=== PATIENT | female | born 1930 | race Caucasian/White ===

== ENCOUNTER 2019-01-29 05:27 | Observation (INO) ==
[2019-01-29] MEDS ORDERED: NS 500 ML IV ONE (05:34)
[2019-01-29] MEDS ORDERED: ZOFRAN IV ONE (05:34)
--- NOTE | 2019-01-29 05:40 | PROVIDER DOCUMENTATION ---
HPI-General Adult - General Chief Complaint: Nausea/Vomiting Stated Complaint: n/v Time Seen by Provider: 01/29/19 05:29 Source: EMS Allergies/Adverse Reactions: Patient Allergies Allergy/AdvReac Type Severity Reaction Status Date / Time No Known Allergies Allergy Verified 07/24/14 02:27 Home Medications: Home Medication List Medication Instructions Recorded Confirmed Last Taken Type Meloxicam [Mobic] 1 tab PO DAILY 01/29/19 01/29/19 Unknown History Nitrofurantoin Macrocrystal 100 mg PO Q7D 01/29/19 01/29/19 Unknown History [Macrodantin] - History of Present Illness -Gen Adult Nature of Presenting Problems: Pt presents with n/v, pt coming from [place], history from EMS as pt is non verbal but per SNF this is the patient baseline, tonight she developed n/v, pt otherwise at baseline, pt is lying in bed in no acute distress. Location of Pain/Injury: reports: none Pain Radiation: reports: no radiation Quality of Pain: reports: none Severity: reports: mild Onset/Duration: reports: just prior to arrival Timing: reports: still present Context/Activities at Onset: reports: none Modifying Factors: improves with: nothing Associated Symptoms: reports: nausea, vomiting Similar Symptoms Previously?: No Recently seen or treated by another doctor?: No Review of Systems - Adult - REVIEW OF SYSTEMS - ADULT ROS:: unobtainable per condition Constitutional: reports: see HPI Past History - Adult - PAST MEDICAL HISTORY-ADULT Review of Records: reports: Old Records Reviewed, Nursing Assessment Review, Medications Reviewed, Social history reviewed & non-contributory. Major Childhood Illnesses: reports: denies history Cardiovascular: reports: HTN, hyperlipidemia Respiratory: reports: denies history Gastrointestinal: reports: colitis, GERD, other (chronic constipation per patient) Obstetrical/Gynecological: reports: denies history Genitourinary: reports: denies history Musculoskeletal: reports: denies history Neurological: reports: denies history Psychiatric: reports: denies history Endocrine/Immune: reports: denies history Other Conditions: reports: denies history, other cancer (skin) - PRIOR SURGERIES/PROCEDURES Surgical/Procedure History: reports: cholecystectomy, hysterectomy - IMMUNIZATION STATUS Childhood Immunizations: See Nurse Assessment Flu Vaccine: See Nurse Assessment Physical Exam-General - CONSTITUTIONAL General Appearance: no apparent distress - EYES Eyes: PERRL/EOMI - HEAD, EARS, NOSE, MOUTH & THROAT HENMT: normal ENT inspection - NECK Neck: normal inspection - RESPIRATORY Respiratory: lungs clear, no respiratory distress, no accessory muscle use - CARDIOVASCULAR Cardiovascular: regular rate, rhythm - GASTROINTESTINAL (ABDOMEN) Abdominal Exam: normal bowel sounds, non tender, soft, no organomegaly - LYMPHATIC Lymphatic: no adenopathy - MUSCULOSKELETAL Back Exam: normal inspection Extremity: normal range of motion - SKIN Integumentary: normal color - NEUROLOGIC Neurologic: grossly normal - PSYCHIATRIC Psych/Mental Status: normal mood/affect Progress - PLAN OF CARE/RESULTS Progress/Plan/Lab Results: Orders Category Date Time Status Nursing- Obtain EKG ONCE Care 01/29/19 05:[address] ABDOMEN/PELVIS W/O CONTRAST [CT] Stat Exams 01/29/19 05:[address] HEAD W/O CONTRAST [CT] Stat Exams 01/29/19 05:32 Ordered cxr [CHEST-1 VIEW] [RAD] Stat Exams 01/29/19 05:34 Ordered BLOOD CULTURE [BLDCUL] Stat Lab 01/29/19 05:32 Uncollected CBC WITH ELECTRONIC DIFF [HEME] Stat Lab 01/29/19 05:32 Uncollected COMPREHENSIVE METABOLIC PANEL [CHEM] Stat Lab 01/29/19 05:32 Uncollected LACTATE, PLASMA [CHEM] Stat Lab 01/29/19 05:32 Uncollected LIPASE [CHEM] Stat Lab 01/29/19 05:32 Uncollected PRO B-NATRIURETIC PEPTIDE Stat Lab 01/29/19 05:32 Uncollected TROPONIN T Stat Lab 01/29/19 05:32 Uncollected URINALYSIS W/POSS RFLX CULT [URINALYSIS] Stat Lab 01/29/19 05:32 Uncollected URINE CULTURE [RM] Stat Lab 01/29/19 05:32 Uncollected Ns 500 ml IV Bolus X1 Med 01/29/19 05:34 Ordered 0.9% Sodium Chloride Inj [Ns] 500 ml IV 999 mls/hr Ondansetron [Zofran] Med 01/29/19 05:34 Once 4 mg IV NOW ONE EKG [EKG] Stat Ther 01/29/19 05:33 Ordered Result Diagrams: 01/29/19 05:45 01/29/19 05:45 - EKG 1 Time of EKG reading by physician:: 06:52 EKG Read and Signed by:: Tea Fierro EKG Interpretation (*Must complete 3 of following elements*): Abnormal Rate: 95 Rhythm: sinus [place]: normal QRS: Q Waves present - CONSULTS/PCP/HOSPITALIST Notification #1 *Consult/PCP/Hospitalist*: Dr. Campuzano Time Discussed: 07:58 Consult Disposition: Admit Departure - Departure Date of Disposition Decision: 01/29/19 Time of Disposition Decision: 07:58 DIAGNOSIS: UTI (urinary tract infection), Partial small bowel obstruction Disposition: ADMITTED INPATIENT 09 Certified Medical Emergency: Emergent Condition: Fair Referrals and Follow-Ups: Tej Campuzano MD [Primary Care Provider] - - Critical Care Note This patient required my direct & personal management of CC.: No Attestation - Physician/ LAST Attestation The physician spent face to face time with patient:: Yes Advanced Practice Provider documentation review:: Supervising physician onsite and consulted in the evaluation and care of this patient. The physician did have a face to face encounter with the patient.
[2019-01-29 06:14] LABS: BASO# 0.01 X1000 (0.0-0.2); BASO% 0.1 % (0.0-0.8); EOS# 0.03 X1000 (0.0-0.7); EOS% 0.4 % (0.0-10.0); HEMATOCRIT 47.9 % (37.0-47.0); HEMOGLOBIN 15.3 g/dL (12.0-16.0); LYMPH# 0.97 X1000 (1.2-3.4); LYMPH% 11.8 % (20.5-51.1); MCH 29.9 PG (27-31); MCHC 31.9 g/dL (33-37); MCV 93.6 FL (81-99); MONO# 0.56 X1000 (0.11-0.59); MONO% 6.8 % (1.7-9.3); MPV 10.6 FL (7.4-10.4); NEUT# 6.65 X1000 (1.4-6.5); NEUT% 80.9 % (42.2-75.2); PLT 159 X1000 (130-400); RBC 5.12 XMIL (4.2-5.4); RDW 14.2 % (11.5-14.5); WBC 8.22 X1000 (4.8-10.8)
--- NOTE | 2019-01-29 06:17 | Diag Imaging Result Doc PS360 ---
EXAM: CT HEAD W/O CONTRAST HISTORY: ams TECHNIQUE: CT head without contrast COMPARISON: None. FINDINGS: No parenchymal hemorrhage. No epidural or subdural hematoma. No subarachnoid hemorrhage. There is atrophy with chronic microvascular ischemic changes. No mass identified on this noncontrasted exam. No hydrocephalus. No sinus opacification. IMPRESSION: 1.No hemorrhage 2.Atrophy with chronic microvascular ischemic changes This exam was performed using automated exposure control, adjustment of mA or kV according to patient size, and/or use of iterative reconstruction technique. Electronically signed by Michel Mills 01/29/2019 6:14 AM
--- NOTE | 2019-01-29 06:21 | Diag Imaging Result Doc PS360 ---
EXAM: CT ABDOMEN/PELVIS W/O CONTRAST HISTORY: n/v TECHNIQUE: CT abdomen and pelvis without contrast COMPARISON: 07/24/2014 FINDINGS: Tiny infiltrates or scarring in the right lung base. No pleural effusions. Severe atherosclerosis. The gallbladder has been removed. No focal hepatic abnormality identified on this noncontrasted exam. Normal spleen. No inflammation about the pancreas. Normal adrenal glands. There are scattered renal cysts. No renal stones. No hydronephrosis. There is a large amount of stool in the rectum. There are several fluid distended loops of small bowel in the left abdomen. Mild scoliosis with degenerative spine changes. The uterus has been removed. No pelvic mass. IMPRESSION: 1.Fecal impaction 2.Possible partial bowel obstruction 3.Cholecystectomy 4.Small infiltrates or atelectasis in the right base 5.Severe atherosclerosis This exam was performed using automated exposure control, adjustment of mA or kV according to patient size, and/or use of iterative reconstruction technique. Electronically signed by Michel Mills 01/29/2019 6:19 AM
--- NOTE | 2019-01-29 06:22 | Diag Imaging Result Doc PS360 ---
EXAM: CHEST-1 VIEW HISTORY: ams TECHNIQUE: Chest single view COMPARISON: 11/28/2012 FINDINGS: The lungs are well expanded. The heart is not enlarged. The vessels are not distended. There are no infiltrates identified on this plain film. No effusion identified. Severe atherosclerosis. IMPRESSION: Negative exam. Electronically signed by Michel Mills 01/29/2019 6:20 AM
[2019-01-29 06:40] LABS: AGAP 11; ALB/GLOB RATIO 1.3; ALKALINE PHOSPHATASE 107 U/L (32-104); BUN 21 mg/dL (8-22); CALCIUM 9.9 mg/dL (8.8-10.2); CHLORIDE 106 mmol/L (98-107); COSMO 291; CREATININE 0.8 mg/dL (0.5-0.9); ESTIMATED GFR > 60; GLUCOSE 153 mg/dL (70-104); GOT 20 U/L (10-30); GPT 17 U/L (10-36); LIPASE 72 U/L (13-60); POTASSIUM 4.2 mmol/L (3.5-5.1); SODIUM 143 mmol/L (136-145); TCO2 26 mmol/L (25-35); TOTAL BILIRUBIN 0.86 mg/dL (0.20-1.00)
[2019-01-29 06:59] LABS: URINE SOURCE CATH
[2019-01-29 07:08] LABS: BILIRUBIN URINE NEGATIVE (NEGATIVE); BLOOD URINE SMALL (NEGATIVE); COLOR YELLOW; GLUCOSE URINE NEGATIVE (NEGATIVE); KETONE URINE NEGATIVE (NEGATIVE); LEUKOCYTES URINE MODERATE (NEGATIVE); NITRITE URINE NEGATIVE (NEGATIVE); PH URINE 6.5; PROTEIN URINE 30 mg/dL (NEGATIVE); SP GRAVITY URINE 1.021; TURBIDITY URINE HAZY (CLEAR); UROBILINOGEN URINE 2 mg/dL (NORMAL)
[2019-01-29 07:10] LABS: UR EPITHELIAL CELLS <10 /HPF (<10); URINE BACTERIA NEGATIVE /HPF; URINE RBC <10 /HPF (<10); URINE WBC TNTC /HPF (<10)
--- NOTE | 2019-01-29 07:38 | EKG Report ---
Test Performed on : 01/29/2019 06:46:42 AM Test Reason : ams Blood Pressure : / mmHG Vent. Rate : 095 BPM Atrial Rate : 095 BPM P-R Int : 180 ms QRS Dur : 074 ms QT Int : 362 ms P-R-T Axes : 065 -19 089 degrees QTc Int : 454 ms Normal sinus rhythm. Inferior infarct , age undetermined Cannot rule out Anterior infarct , age undetermined Abnormal ECG When compared with ECG of 08-SEP-2013 07:02, Minimal criteria for Anterior infarct are now present Inferior infarct is now present Unconfirmed Result
[2019-01-29] MEDS ORDERED: ZOFRAN IV PRN (07:59)
[2019-01-29] MEDS ORDERED: TYLENOL PO PRN (07:59)
[2019-01-29] MEDS ORDERED: VISINE OPH DROPS BOTH EYES ONE (08:06)
[2019-01-29] MEDS: ROCEPHIN 1 GM in NS 50 ML IV SCH (08:36)
--- NOTE | 2019-01-29 16:57 | HISTORY AND PHYSICAL ---
CHIEF COMPLAINT: Difficult to arouse. HISTORY OF PRESENT ILLNESS: An 88-year-old white female lives in an assisted living situation. This morning, they had difficulty arousing her up. There was vomit on her sheet. After a few attempts to get her to arouse showed there it was difficult called her daughter who engaged the video line and tried to get her aroused and still could not. She was just overly sleepy and somewhat lethargic. She vomited one more time at the assisted living facility and transported to the emergency room. Once to the emergency room the patient's family relates that she just basically snapped out of it was back to her normal self. Workup there revealed ira-[id number]- count white cells in the urine and a slightly abnormal CT scan of the abdomen, although I do not put much credence in that as a primary source of difficulties. The patient's daughter was worried about aspiration, but there did not appear to be any evidence that on chest x-ray nor was her white count elevated, nor did she have fever. The patient is admitted for treatment of UTI. PAST MEDICAL HISTORY: 1. Hypertension. 2. Hyperlipidemia. 3. Chronic constipation. 4. Lumbar spondylosis. 5. History of thyroid cyst. 6. Gastroesophageal reflux disease. 7. Stage 2 chronic kidney disease. 8. History of hypothyroidism. 9. History of genital herpes. 10. Chronic urinary tract infection with weekly prophylaxis. 11. Senile dementia. PAST SURGICAL HISTORY: 1. Hysterectomy. 2. Cataracts bilateral. 3. Cholecystectomy. SOCIAL HISTORY: The patient is . She lives in assisted living. She has supportive daughters. FAMILY HISTORY: Noncontributory. ALLERGIES: Neosporin. REVIEW OF SYSTEMS: Patient has not had any fever or chills. She is eating well. Her weight is stable. She has been at her baseline level of mental interaction for quite some time. She was seen in the office only a week ago and seemed to be doing fine. There has not been any cough wheezing or shortness of breath. No chest pain or palpitations. The patient has not had any other nausea or vomiting other than tonight. Her bowels have been moving regularly, although the family relates that it is loose. PHYSICAL EXAMINATION: GENERAL: She is a well-developed white female in no acute distress. She is speaking and responding, although very much in conjunction with her baseline level of functioning she sometimes answers inappropriately. Her speech is fluid. The patient's daughter states that she is back to her normal self. HEENT: Unremarkable. LUNGS: Clear to auscultation in all alfred. There is no wheezing or rales. CARDIOVASCULAR: Regular without appreciable murmur or gallop. ABDOMEN: Shows bowel sounds are present. Her abdomen is soft and is nontender. EXTREMITIES: No peripheral edema. LABORATORY: White cell count 8.2, hematocrit 47.9, glucose is 153, BUN 21, creatinine 0.8. Urinalysis shows ftr-[id number]-[id number]-count white cells and moderate leukocyte. There are no bacteria present. ASSESSMENT AND PLAN: 1. I put the patient in for observation. We are going to give her some Rocephin, send off and wait for urine cultures to help guide any therapy. It is likely that she will return to her previous prophylaxis dose for urinary tract infection. 2. The patient is on very little in the way of medication. We will continue those during her hospitalization. 3. No other workup is planned. 4. DNR level 1. This was confirmed with the patient's daughters. cc: Tej Campuzano MD
--- NOTE | 2019-01-30 08:50 | PROGRESS NOTE ---
DATE: 01/30/2019 SUBJECTIVE: The patient is sitting in bed eating breakfast, albeit slowly. There is no family present. The patient voices no complaints and answers in the negative to any problems with nausea, vomiting, shortness of breath, cough or wheezing. She denies any pain. OBJECTIVE: Vital Signs: 98.5 degrees, 71, 150/74, 99% saturated on room air. Lungs: Clear. Cardiovascular: Regular. Psychiatric: Standpoint, the patient is operating at baseline. She is alert and interactive, generally oriented, but some inappropriate answering and questions are sometimes forthcoming from her. LABORATORIES: No labs were drawn today. MICROBIOLOGY: Currently there is no growth in the preliminary urine culture. ASSESSMENT AND PLAN: 1. The patient's urine appeared to have an infectious process ongoing and we are treating with Rocephin. Awaiting culture results. She is on prophylactic antibiotics on a weekly basis. Blood cultures are negative. 2. There has been no further nausea and vomiting. We will continue p.r.n. to try and get the patient to eating a little bit better. 3. Physical therapy has been ordered and the patient is to be out of bed twice daily. 4. Senile dementia is stable. cc: Tej Campuzano MD
[2019-01-30] MEDS: MOBIC PO SCH (08:56)
[2019-01-30] MEDS: ROCEPHIN 1 GM in NS 50 ML IV SCH (08:56)
[2019-01-30] MEDS: DIFLUCAN PO SCH (08:58)
[2019-01-30] MEDS ORDERED: CALMOSEPTINE OINTMENT TOP PRN (15:11)
[2019-01-31 07:56] VITALS: BP 145/61
[2019-01-31] MEDS: ROCEPHIN 1 GM in NS 50 ML IV SCH (08:35)
[2019-01-31] MEDS: MOBIC PO SCH (08:35)
[2019-01-31] MEDS: DIFLUCAN PO SCH (08:35)
--- NOTE | 2019-02-02 06:47 | DISCHARGE SUMMARY ---
ADMISSION DATE: 01/29/2019 DISCHARGE DATE: 01/31/2019 DISCHARGE DIAGNOSES: 1. Nausea and vomiting. 2. Weakness. 3. Urinary tract infection [*]unspecified. 4. Senile dementia. HOSPITAL COURSE: This 88-year-old white female was transported after vomiting twice at her assisted living situation. She was generally much less responsive, but suddenly came back while she was in the emergency room and was pretty much operating at baseline. Workup there did not show any pneumonia or aspiration. She did have urine that was highly suggestive of urinary tract infection, even though she is on prophylactic antibiotics. The patient was admitted for observation, given IV fluids and started empirically on Rocephin. Urine cultures and blood cultures did not grow out any organisms. This was discontinued and she was discharged back to her assisted living situation to continue her physical therapy and other monitoring. No medication was changed at the time of discharge. She is to follow up as scheduled. cc: Tej Campuzano MD
== END 2019-01-31 10:49 | disposition home health service (06) ==
LOC: 3N 05:27 → ED 05:27
PROVIDERS: ADMIT Internal Medicine; ATTEND Internal Medicine